=== PATIENT | male | born 1950 | race Caucasian/White ===

== ENCOUNTER 2018-11-24 13:41 | Emergency (ER) | payer OTHER, SELFPAY ==
[2018-11-24 13:52] VITALS: BP 176/76; PULSE 86; RESP 19; TEMP 36.9; O2SAT 98
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
--- NOTE | 2018-11-24 13:56 | PC.NURSE ---
Pt got up to go to bathroom, slightly unsteady gait. Went into bathroom, voided, came out and walked past room and turned into radiology hallway and started to run (slowly) away from unit. Did not respond to verbal redirection. EMT-P and radilogy tech ran to catch up and directed him back to ED. Pt brought to room 13 for higher level of surveillance until state of mind can be determined.
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
--- NOTE | 2018-11-24 14:02 | PC.NURSE ---
Pt has knife in belongings. Belongings locked in patient belonging cabinet w/ pt knowledge and consent. Pt has cell phone with him but has no wallet with him. Pt thinks he left it in the car.
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
--- NOTE | 2018-11-24 14:33 | PC.NURSE ---
Officer arrived to speak with Pt, officer taken to room, pt did not object to speaking with officer.
[2018-11-24 16:01] VITALS: BP 140/84; PULSE 72; RESP 16
== END 2018-11-24 16:02 | disposition home or self-care (01) ==
PROVIDERS: Emergency Provider Emergency Medicine
DX: S61.210A Laceration without foreign body of right index finger without damage to nail, initial encounter (principal); S61.212A Laceration without foreign body of right middle finger without damage to nail, initial encounter; V89.2XXA Person injured in unspecified motor-vehicle accident, traffic, initial encounter; Z23 Encounter for immunization
CPT/HCPCS: 12002; 70450; 72125; 90471; 99283; 99284